=== PATIENT | female | born 1960 | race Caucasian/White ===

== ENCOUNTER 2018-06-16 15:44 | Emergency (ER) | payer SELFPAY ==
[~2018-06-16] VITALS: Ht 147.3 cm; Wt 52.2 kg
[2018-06-16 16:02] VITALS: BP_SYST 161
[2018-06-16 17:47] VITALS: BP_SYST 152
== END 2018-06-16 17:47 | disposition home or self-care (01) ==
LOC: SED 15:44
DX: R51 Headache (principal); I10 Essential (primary) hypertension; K21.9 Gastro-esophageal reflux disease without esophagitis; E78.5 Hyperlipidemia, unspecified; Z88.8 Allergy status to other drugs, medicaments and biological substances; Z90.710 Acquired absence of both cervix and uterus
CPT/HCPCS: 99282